=== PATIENT | male | born 1935 | race Hispanic/Latino ===

== ENCOUNTER → 2019-08-11 | Day surgery (SDC) | payer MEDICARE ==
[2019-08-07 17:18] LABS: BASOPHILS # (AUTO) 0.1 (0.0-0.1); BASOPHILS % 0.9 % (0.0-1.0); EOSINOPHILS # (AUTO) 0.1 (0.0-0.4); HEMATOCRIT 35.2 % (38.2-49.6); HEMOGLOBIN 11.5 g/dL (14.0-18.0); LYMPHOCYTES # (AUTO) 1.2 (1.0-3.2); MEAN CORPUSCULAR HEMOGLOBIN 25.6 pg (28-32); MEAN CORPUSCULAR HGB CONC 32.7 g/dL (31-35); MEAN CORPUSCULAR VOLUME 78.4 fL (81-99); MONOCYTES # (AUTO) 0.3 (0.2-0.8); MONOCYTES % 5.9 % (4.4-11.3); NEUTROPHILS # (AUTO) 3.9 (2.1-6.9); NEUTROPHILS % 69.8 % (38.7-80.0); PLATELET COUNT 301 x10e3/uL (140-360); RED BLOOD COUNT 4.49 x10e6/uL (4.3-5.7); RED CELL DISTRIBUTION WIDTH 16.9 % (11.7-14.4)
[~2019-08-11] MED LIST: AMLODIPINE BESYL5 MG PO; AZOPT10 ML OU; LATANOPROST2.5 ML OU; PROPOFOL IV EMULSION 10 MG/ML 50 ML VIAL ONE; SIMETHICONE 40 MG/0.6 ML BTL ONE
--- OUTSIDE RECORDS SUMMARY | 2019-08-11 06:10 | XMS REPORT ---
Author Author [facility] Address Unknown Phone Unavailable Care Team Providers Care Sink Cutter Name Role Phone Unavailable Unavailable Problems This patient has no known problems. Allergies, Adverse Reactions, Alerts This patient has no known allergies or adverse reactions. Medications This patient has no known medications. Encounters Start Date/Time End Date/Time Encounter Type Admission Type Attending [facility] Care Facility Care Department Encounter ID 2019-05-01 03:16:00 Inpatient [facility] – [place] [facility] [id number]
[2019-08-11 09:45] VITALS: BP 183/82
--- NOTE | 2019-08-11 16:19 | Operative Report ---
DATE OF PROCEDURE: SURGEON: Quang Regan MD REASON FOR PROCEDURE: Abnormal CT scan. DESCRIPTION OF PROCEDURE: After informed and written consent, premedications with monitored anesthesia care, standard video Olympus gastroscope was introduced into the mouth, esophagus, stomach and into the 2nd portion of the duodenum. The pylorus, 1st and 2nd portion of the duodenum appeared to be normal. The antrum showed gastritis and biopsies were done. Body, fundus appeared to be unremarkable. Retroflexion revealed a hiatal hernia and mild esophagitis was noted at the GE junction and biopsies were done. There was no esophageal mass. The colonoscope was introduced in the rectum and all the way into the cecum. The prep was suboptimal. There was a large 5 cm rectal mass starting at 5 to 6 cm from the anal verge and extending into 9 cm from the anal verge. This was nonobstructive, but looked ulcerated and friable and biopsies were done. There was some scattered diverticulosis seen in the sigmoid colon. IMPRESSION: Suboptimal colon prep, large rectal mass from 5 to 9 cm from the anal verge and diverticulosis, gastritis, hiatal hernia, mild esophagitis. RECOMMENDATIONS: Check pathology. Deferred to Oncology and colorectal surgery. The patient has been advised to follow up in the office next week. Quang Regan MD SR/MODL /[id number] cc: Gonzalo Owusu MD
== END | disposition home or self-care (01) ==
LOC: OR 06:07
PROVIDERS: ATTEND Internal Medicine Gastroenterology
DX: C20 Malignant neoplasm of rectum (principal); K29.50 Unspecified chronic gastritis without bleeding; K57.30 Diverticulosis of large intestine without perforation or abscess without bleeding; K21.0 Gastro-esophageal reflux disease with esophagitis; K44.9 Diaphragmatic hernia without obstruction or gangrene; B96.81 Helicobacter pylori [H. pylori] as the cause of diseases classified elsewhere; R93.89 Abnormal findings on diagnostic imaging of other specified body structures; K42.9 Umbilical hernia without obstruction or gangrene; I10 Essential (primary) hypertension; H40.9 Unspecified glaucoma; Z88.0 Allergy status to penicillin; Z01.810 Encounter for preprocedural cardiovascular examination; Z01.812 Encounter for preprocedural laboratory examination; Z87.891 Personal history of nicotine dependence; Z83.71 Family history of colonic polyps
CPT/HCPCS: 36415; 43239; 45380; 85025; 88305; 88312; 93005; J2704